=== PATIENT | female | born 1985 | race Two or more races ===

== ENCOUNTER 2025-07-06 10:18 | Emergency (ER) | payer MEDICAID, OTHER ==
[~2025-07-06] VITALS: Ht 154.9 cm; Wt 61.0 kg
--- NOTE | 2025-07-06 10:38 | ED.PDOC ---
History of Present Illness HPI Comments 40-year-old female with no significant past medical history brought in by EMS from her work at [facility] [employer] complaining of dizziness. Patient states she woke up this morning with a throbbing headache in the occipital area and radiating to the top of her head causing a burning sensation in the top of her head. She admits to drinking alcohol last night, but not heavily. Patient states she took ibuprofen this morning without relief. She states that when the pain is severe she becomes lightheaded and feels like she is going to pass out. She denies any vision changes, numbness, weakness, chest pain or shortness of breath. 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 Moist mucous membranes.) Neck: Full Range of Motion, Normal Inspection Respiratory: Lungs Clear, No Accessory Muscle Use, No Respiratory Distress, Nor mal Breath Sounds Cardiovascular: No Edema, No JVD, Regular Rate/Rhythm Breast Exam: Deferred Gastrointestinal: Non Tender, Soft Genitalia: Deferred Pelvic: Deferred Rectal: Deferred Extremities: Normal inspection, Normal range of motion, Non-tender, No pedal edema Neurologic: Alert (Oriented x4), power lineworker II-XII nml as Tested, No Motor Deficits, Normal Affect, Normal Mood, No Sensory Deficits Cerebellar Function: NOT DONE Reflexes: NOT DONE Skin: Dry, Normal Color, Warm Lymphatic: NOT DONE Was a procedure done? Was a procedure done?: No Differential Dx Considerations may include: vertigo, dehydration, electrolyte imbalance, viral syndrome, intracranial bleed, hypotension, among others X-Ray, Labs, Meds, VS Vital Signs Date Time Temp Pulse Resp B/P (MAP) Pulse Ox O2 Delivery O2 Flow Rate FiO2 07/06/25 16:30 97.5 60 20 141/75 (97) 100 97.5 07/06/25 14:27 97.6 71 16 136/75 (95) 100 97.6 07/06/25 14:05 Room Air* 0 21 07/06/25 10:29 98.5 71 16 115/81 97 98.5 Lab Test 07/06/25 16:49 07/06/25 11:49 07/06/25 10:55 Range/Units Urine Color Colorless Yellow Urine Clarity Clear Clear Urine pH 6.0 5.0-9.0 Urine Specific [place] 1.021 1.001-1.035 Urine Protein Negative Negative Urine Ketones Negative Negative Urine Blood Negative Negative /uL Urine Nitrite Negative Negative Urine Bilirubin Negative Negative Urine Urobilinogen Normal Negative mg/dL Urine Leukocyte Esterase Negative Negative /uL Urine RBC <1 0 - 4 /hpf Urine Microscopic WBC 1 0-5 /HPF Urine Squamous Epithelial Cells Few <5 /hpf Urine Bacteria None seen None Seen /hpf Urine Glucose Normal Normal mg/dL Troponin I High Sensitivity < 3 L < 3 L </=34 ng/L White Blood Count 5.5 4.4-10.8 10^3/uL Red Blood Count 4.70 4.0-5.20 10^6/uL Hemoglobin 9.7 L 12.2-16.2 g/dL Hematocrit 31.9 L 36.0-46.0 % Mean Corpuscular Volume 67.8 L 80.0-100.0 fL Mean Corpuscular Hemoglobin 20.6 L 28.0-32.0 pg Mean Corpuscular Hemoglobin Concent 30.3 L 32.0-36.0 g/dL Red Cell Distribution Width 19.4 H 11.8-14.3 % Platelet Count 471 H 140-450 10^3/uL Mean Platelet Volume 6.6 L 6.9-10.8 fL Neutrophils (%) (Auto) 64.1 37.0-80.0 % Lymphocytes (%) (Auto) 26.7 10.0-50.0 % Monocytes (%) (Auto) 7.8 0.0-12.0 % Eosinophils (%) (Auto) 0.6 0.0-7.0 % Basophils (%) (Auto) 0.8 0.0-2.0 % Neutrophils # (Auto) 3.5 1.6-8.6 10 ^3/uL Lymphocytes # (Auto) 1.5 0.4-5.4 10 ^3/uL Monocytes # (Auto) 0.4 0-1.3 10 ^3/uL Eosinophils # (Auto) 0 0-0.8 10 ^3/uL Basophils # (Auto) 0 0-0.2 10 ^3/uL Nucleated Red Blood Cells 0.0 % Platelet Estimate Increased Hypochromasia (manual) Moderate Anisocytosis (manual) Slight Microcytosis Moderate D-Dimer, Quantitative 0.54 H 0.0-0.49 mg/L FEU Sodium Level 141 136-145 mmol/L Potassium Level 4.7 3.5-5.1 mmol/L Chloride Level 107 98-107 mmol/L Carbon Dioxide Level 27 20-31 mmol/L Anion Gap 7 5-15 Blood Urea Nitrogen 9 9-23 mg/dL Creatinine 0.69 0.550-1.02 mg/dL Glomerular Filtration Rate Calc 112 >90 mL/min BUN/Creatinine Ratio 13.0 10.0-20.0 Serum Glucose 110 H 74-106 mg/dL Calcium Level 9.3 8.7-10.4 mg/dL B-Type Natriuretic Peptide 17.20 0-100 pg/mL Current Medications Medications (Trade) Dose Ordered Sig/Luiz Route Start Time Stop Time Status Last Admin Sodium Chloride 1,000 ml @ 1,000 mls/hr Q1H ONCE IV 07/06/25 10:45 07/06/25 11:44 DC 07/06/25 10:45 Acetaminophen/ Hydrocodone Bitart ([place] 5/325MG Tab) 1 tab ONCE ONCE PO 07/06/25 10:45 07/06/25 10:46 DC 07/06/25 14:[address] [address] Ph: [phone] DIAGNOSTIC IMAGING Diagnostic Imaging Report : [id number] Signed PATIENT: JONATHAN TEJEDA ACCT: [id number] UNIT: [id number] : 1985 LOC: ER ROOM / BED: / AGE / SEX: 40 / F ADM STATUS: REG ER SERVICE 1038 ORDERING PHYSICIAN: SAMRA TIWARI MD PROCEDURE(s): HWOCT - HEAD WITHOUT CONTRAST REASON: Headache, near syncope ORDER NUMBER(s): [id number], ACCESSION NUMBER(s): [id number] CT HEAD WITHOUT CONTRAST INDICATION: Headache, near syncope COMPARISON: None TECHNIQUE: CT of the head without intravenous contrast. RADIATION DOSE: CTDIvol: 54 mGy, DLP: 756 mGy*cm FINDINGS: There is no evidence of acute intracranial hemorrhage, extra-axial collection, mass effect, midline shift, herniation or hydrocephalus. The ventricles, sulci and cisterns are age appropriate. The quinones-white differentiation is intact. The visualized paranasal sinuses and mastoid air cells are clear. The surrounding soft tissues and osseous structures are unremarkable. IMPRESSION: 1. No evidence of acute intracranial hemorrhage, mass effect or hydrocephalus. ATED BY: ALEXEI JOSUE MD DICTATED DATE/TIME: 07/06/251126 SIGNED BY: ALEXEI JOSUE MD SIGNED DATE/TIME: 07/06/251126 CC: [place] [address] Ph: [phone] DIAGNOSTIC IMAGING Diagnostic Imaging Report : [id number] Signed PATIENT: JONATHAN TEJEDA ACCT: [id number] UNIT: [id number] : 1985 LOC: ER ROOM / BED: / AGE / SEX: 40 / F ADM STATUS: REG ER SERVICE 1038 ORDERING PHYSICIAN: SAMRA TIWARI MD PROCEDURE(s): CXRP - CHEST PORTABLE REASON: near syncope ORDER NUMBER(s): [id number], ACCESSION NUMBER(s): [id number] CHEST RADIOGRAPH Indication: near syncope Technique: Single frontal view of the chest was obtained COMPARISON: None FINDINGS: Lines and Tubes: None Lungs: Congestion Pleura: No effusion. No pneumothorax. Cardiomediastinal contours: Unremarkable Bones: Unremarkable IMPRESSION: Increased interstital prominence. This may represent pulmonary vascular congestion and/or viral pneumonia. Clinical correlation advised. ATED BY: DAVE YOUNGER MD DICTATED DATE/TIME: 07/06/25 112 SIGNED BY: DAVE YOUNGER MD SIGNED DATE/TIME: 07/06/25 1123 CC: PROCEDURE(s): CTACH - CT ANGIO CHEST CONTRAST REASON: near syncope, elevated ddimer, r/o pe ORDER NUMBER(s): [id number], ACCESSION NUMBER(s): [id number] INDICATION: near syncope, elevated ddimer, r/o pe TECHNIQUE: Multidetector CTA of the chest was performed of the chest with 100 cc of intravenous contrast. PULMONARY ANGIOGRAPHY PROTOCOL was utilized using a bolus-tracking technique centered on the main pulmonary artery. Axial, coronal and sagittal multiplanar and MIP reformats were performed. Radiation Dose Information: CT Dose: CTDI volume is 9.57 mGy. Dose-length product is 2.54 mGy*cm Omnipaque 350: 60 mL The dose indicators for CT are the volume Computed Tomography (CT) Dose Index (CTDIvol) and the Dose Length Product (DLP), and are measured in units of mGy and mGy-cm, respectively. These indicators are not patient dose, but values generated from the CT scanner acquisition factors. The report includes radiation exposure data for exposures received during this examination. Findings: Pulmonary artery: Normal caliber of the pulmonary artery. No large central or large segmental pulmonary embolism. Lower neck: Normal thyroid. Lungs: No focal consolidation, pulmonary mass, or suspicious pulmonary nodule. Heart/Vascular Structures: Normal heart size. Normal caliber and enhancement of the aorta. Lymph Nodes: No adenopathy Pleura: No pleural effusion or significant pneumothorax. Musculoskeletal: No acute osseous abnormality. Upper abdomen: Limited portions of the upper abdomen are unremarkable. IMPRESSION: 1. No pulmonary embolism. No findings of pulmonary artery hypertension. 2. No acute intrathoracic abnormality. X-Ray, Labs, Meds, VS Comment 40-year-old female with no significant past medical history brought in by EMS from her work at [facility] [employer] complaining of dizziness. Vitals unremarkable Exam unremarkable Rhythm strip independently interpreted by me: Sinus rhythm, rate CT unremarkable Chest x-ray IMPRESSION: Increased interstital prominence. This may represent pulmonary vascular congestion and/or viral pneumonia. Clinical correlation advised. CT angio chest IMPRESSION: 1. No pulmonary embolism. No findings of pulmonary artery hypertension. 2. No acute intrathoracic abnormality. CBC remarkable for hemoglobin 9.7, hematocrit 31.9, metabolic panel unremarkable, BNP and 2 serial troponins negative, D-dimer 0.54 UA negative Patient treated with the following in the ED: 1 L 0.9 normal saline IV bolus, [place] 5/325 mg p.o. On re-evaluation, pain has improved. Vitals were stable. Patient appears stable for discharge with close outpatient follow-up with her primary physician. Time of 1ST Reevaluation: 10:52 Reevaluation 1ST: Unchanged Patient Education/Counseling: Diagnosis, Treatment, Need For Follow Up Family Education/Counseling: No Family Present SEPSIS Sepsis Screen Date sepsis recognized/suspect: Jul 06, 2025 Time Sepsis recognized/suspect: 102 Recent Procedure: No On Antibiotic Therapy: No Respiratory Rate >20: No Heart Rate >90: No Temp<36 C (96.8 F) or >38.3 C: No SBP <90 or MAP <65 mmHG: No New Acute Mental Status Change: No Is the patient on CPAP, BIPAP,: No Physician Orders Chest Portable (07/06/25 10:38) Electrocardigram (07/06/25 10:38) Head Without Contrast (07/06/25 10:38) Ct Angio Chest Contrast (07/06/25 12:43) Vital Signs Date Time Temp Pulse Resp B/P (MAP) Pulse Ox O2 Delivery O2 Flow Rate FiO2 07/06/25 16:30 97.5 60 20 141/75 (97) 100 97.5 07/06/25 14:27 97.6 71 16 136/75 (95) 100 97.6 07/06/25 14:05 Room Air* 0 21 07/06/25 10:29 98.5 71 16 115/81 97 98.5 Laboratory Tests Test 07/06/25 10:55 White Blood Count 5.5 10^3/uL (4.4-10.8) Medications Medications Dose Ordered Sig/Luiz Route Start Time Stop Time Status Last Admin Dose Admin Acetaminophen/ Hydrocodone Bitart 1 tab ONCE ONCE PO 07/06/25 10:45 07/06/25 10:46 DC 07/06/25 14:20 Sodium Chloride 1,000 ml @ 1,000 mls/hr Q1H ONCE IV 07/06/25 10:45 07/06/25 11:44 DC 07/06/25 10:45 Departure 1 Departure Time of Disposition: 17:00 Impression: Primary Impression: Headache Additional Impression: Near syncope Disposition: 01 HOME / SELF CARE / HOMELESS Condition: Stable Additional Instructions: Your blood tests, including screening test for heart attack and heart failure, were unremarkable except for mild anemia. There is no treatment needed other than pain medication. Your head CT and chest x-ray were unremarkable. The CT angiogram of your chest was done to rule out blood clots, which can cause dizziness and fainting. No blood clots were seen on your chest CT. I have prescribed pain medication. Follow-up with your primary doctor in 1-2 days. Return to ER for persistent or worsening symptoms. [place] [address] Ph: [phone] DIAGNOSTIC IMAGING Diagnostic Imaging Report : [id number] Signed PATIENT: JONATHAN TEJEDA ACCT: [id number] UNIT: [id number] : 1985 LOC: ER ROOM / BED: / AGE / SEX: 40 / F ADM STATUS: REG ER SERVICE 1038 ORDERING PHYSICIAN: SAMRA TIWARI MD PROCEDURE(s): HWOCT - HEAD WITHOUT CONTRAST REASON: Headache, near syncope ORDER NUMBER(s): [id number], ACCESSION NUMBER(s): [id number] CT HEAD WITHOUT CONTRAST INDICATION: Headache, near syncope COMPARISON: None TECHNIQUE: CT of the head without intravenous contrast. RADIATION DOSE: CTDIvol: 54 mGy, DLP: 756 mGy*cm FINDINGS: There is no evidence of acute intracranial hemorrhage, extra-axial collection, mass effect, midline shift, herniation or hydrocephalus. The ventricles, sulci and cisterns are age appropriate. The quinones-white differentiation is intact. The visualized paranasal sinuses and mastoid air cells are clear. The surrounding soft tissues and osseous structures are unremarkable. IMPRESSION: 1. No evidence of acute intracranial hemorrhage, mass effect or hydrocephalus. [place] [address] Ph: [phone] DIAGNOSTIC IMAGING Diagnostic Imaging Report : [id number] Signed PATIENT: JONATHAN TEJEDA ACCT: [id number] UNIT: [id number] : 1985 LOC: ER ROOM / BED: / AGE / SEX: 40 / F ADM STATUS: REG ER SERVICE 1243 ORDERING PHYSICIAN: SAMRA TIWARI MD PROCEDURE(s): CTACH - CT ANGIO CHEST CONTRAST REASON: near syncope, elevated ddimer, r/o pe ORDER NUMBER(s): [id number], ACCESSION NUMBER(s): [id number] INDICATION: near syncope, elevated ddimer, r/o pe TECHNIQUE: Multidetector CTA of the chest was performed of the chest with 100 cc of intravenous contrast. PULMONARY ANGIOGRAPHY PROTOCOL was utilized using a bolus-tracking technique centered on the main pulmonary artery. Axial, coronal and sagittal multiplanar and MIP reformats were performed. Radiation Dose Information: CT Dose: CTDI volume is 9.57 mGy. Dose-length product is 2.54 mGy*cm Omnipaque 350: 60 mL The dose indicators for CT are the volume Computed Tomography (CT) Dose Index (CTDIvol) and the Dose Length Product (DLP), and are measured in units of mGy and mGy-cm, respectively. These indicators are not patient dose, but values generated from the CT scanner acquisition factors. The report includes radiation exposure data for exposures received during this examination. Findings: Pulmonary artery: Normal caliber of the pulmonary artery. No large central or large segmental pulmonary embolism. Lower neck: Normal thyroid. Lungs: No focal consolidation, pulmonary mass, or suspicious pulmonary nodule. Heart/Vascular Structures: Normal heart size. Normal caliber and enhancement of the aorta. Lymph Nodes: No adenopathy Pleura: No pleural effusion or significant pneumothorax. Musculoskeletal: No acute osseous abnormality. Upper abdomen: Limited portions of the upper abdomen are unremarkable. IMPRESSION: 1. No pulmonary embolism. No findings of pulmonary artery hypertension. 2. No acute intrathoracic abnormality. e-Prescriptions Ibuprofen Micronized (Ibuprofen) 800 Mg Tab 800 MG PO Q8HP PRN, #30 TAB Prov: SAMRA TIWARI MD 07/06/25 Acetaminophen (Tylenol Extra Strength) 500 Mg Tab 1000 MG PO Q6HP PRN, #30 TAB Prov: SAMRA TIWARI MD 07/06/25 Discharged With: Self Critical Care Note Critical Care Time?: No Stability Stability form required: No Heart Score Heart Score: Heart Score Response (Comments) Value History N/A 0 EKG N/A 0 Age N/A 0 Risk Factors N/A 0 Troponin N/A 0 Total 0 I personally scribed for SAMRA TIWARI MD ([email or web address]) on 07/06/25 at 10:56. Electronically submitted by Avery Cantu ([email or web address]). I personally scribed for SAMRA TIWARI MD ([email or web address]) on 07/06/25 at 12:31. Electronically submitted by Avery Cantu ([email or web address]). SAMRA TIWARI MD Jul 06, 2025 10:38
[2025-07-06] MEDS: SODIUM CHLORIDE 0.9% 1,000 ML IV ONE (10:45)
[2025-07-06 11:13] LABS: Hemoglobin 9.7 g/dL (12.2-16.2)
[2025-07-06 11:15] LABS: Hematocrit 31.9 % (36.0-46.0); Mean Corpuscular Hemoglobin 20.6 pg (28.0-32.0); Mean Corpuscular Volume 67.8 fL (80.0-100.0); Nucleated Red Blood Cells % 0.0 %
[2025-07-06 11:19] LABS: Potassium 4.7 mmol/L (3.5-5.1); Sodium 141 mmol/L (136-145)
[2025-07-06 11:20] LABS: Anion Gap 7 (5-15); Carbon Dioxide 27 mmol/L (20-31)
[2025-07-06 11:21] LABS: Calcium 9.3 mg/dL (8.7-10.4)
[2025-07-06 11:25] LABS: BUN/Creatinine Ratio 13.0 (10.0-20.0); Blood Urea Nitrogen 9 mg/dL (9-23)
--- NOTE | 2025-07-06 11:25 | DVH ---
CHEST RADIOGRAPH Indication: near syncope Technique: Single frontal view of the chest was obtained COMPARISON: None FINDINGS: Lines and Tubes: None Lungs: Congestion Pleura: No effusion. No pneumothorax. Cardiomediastinal contours: Unremarkable Bones: Unremarkable IMPRESSION: Increased interstital prominence. This may represent pulmonary vascular congestion and/or viral pneum onia. Clinical correlation advised.
[2025-07-06 11:28] LABS: Chloride 107 mmol/L (98-107)
--- NOTE | 2025-07-06 11:29 | DVH ---
CT HEAD WITHOUT CONTRAST INDICATION: Headache, near syncope COMPARISON: None TECHNIQUE: CT of the head without intravenous contrast. RADIATION DOSE: CTDIvol: 54 mGy, DLP: 756 mGy*cm FINDINGS: There is no evidence of acute intracranial hemorrhage, extra-axial collection, mass effect, midline s hift, herniation or hydrocephalus. The ventricles, sulci and cisterns are age appropriate. The quinones -white differentiation is intact. The visualized paranasal sinuses and mastoid air cells are clear. The surrounding soft tissues and osseous structures are unremarkable. IMPRESSION: 1. No evidence of acute intracranial hemorrhage, mass effect or hydrocephalus.
[2025-07-06 11:34] LABS: Anisocytosis Slight
[2025-07-06 11:53] LABS: Glucose 110 mg/dL (74-106)
[2025-07-06] MEDS: IOHEXOL 350 MG/ML 100ML IJ ONE (12:52)
[2025-07-06] MEDS: HYDROcodone-ACET 5/325MG TAB PO ONE (14:20)
--- NOTE | 2025-07-06 14:49 | DVH ---
INDICATION: near syncope, elevated ddimer, r/o pe TECHNIQUE: Multidetector CTA of the chest was performed of the chest with 100 cc of intravenous contr ast. PULMONARY ANGIOGRAPHY PROTOCOL was utilized using a bolus-tracking technique centered on the morteza n pulmonary artery. Axial, coronal and sagittal multiplanar and MIP reformats were performed. Radiation Dose Information: CT Dose: CTDI volume is 9.57 mGy. Dose-length product is 2.54 mGy*cm Omnipaque 350: 60 mL The dose indicators for CT are the volume Computed Tomography (CT) Dose Index (CTDIvol) and the Dose Length Product (DLP), and are measured in units of mGy and mGy-cm, respectively. These indicators are not patient dose, but values generated from the CT scanner acquisition factors. The report includes radiation exposure data for exposures received during this examination. Findings: Pulmonary artery: Normal caliber of the pulmonary artery. No large central or large segmental pulmo nary embolism. Lower neck: Normal thyroid. Lungs: No focal consolidation, pulmonary mass, or suspicious pulmonary nodule. Heart/Vascular Structures: Normal heart size. Normal caliber and enhancement of the aorta. Lymph Nodes: No adenopathy Pleura: No pleural effusion or significant pneumothorax. Musculoskeletal: No acute osseous abnormality. Upper abdomen: Limited portions of the upper abdomen are unremarkable. IMPRESSION: 1. No pulmonary embolism. No findings of pulmonary artery hypertension. 2. No acute intrathoracic abnormality.
[2025-07-06 17:06] LABS: Urine Protein, UAD Negative (Negative)
[2025-07-06] MEDS ORDERED: ACET-1304 PO (17:30)
[2025-07-06] MEDS ORDERED: IBUP-1455 PO (17:30)
[2025-07-06 18:38] VITALS: BP 152/77; PULSE 64; RESP 18; TEMP 98.2; O2SAT 98
== END 2025-07-06 18:40 | disposition home or self-care (01) ==
LOC: EDBD 10:18 → ER 10:18
DX: R42 Dizziness and giddiness (principal); R20.8 Other disturbances of skin sensation; R51.9 Headache, unspecified; Z79.899 Other long term (current) drug therapy
CPT/HCPCS: 36415; 70450; 71045; 71275; 80048; 81001; 83880; 84484; 85025; 85379; 96360; 99285; J7030; Q9967

== ENCOUNTER 2025-07-07 11:02 | Emergency (ER) | payer MEDICAID ==
[~2025-07-07] VITALS: Ht 154.9 cm; Wt 61.0 kg
[~2025-07-07 11:02] MED LIST: ACET-1304 PO; IBUP-1455 PO
--- NOTE | 2025-07-07 12:03 | ED.PDOC ---
History of Present Illness HPI Comments 40-year-old female presents to the ER with prior surgical history of and a chief complaint of a medical clearance. Patient is requesting an work note for visit here yesterday of head pain and dizziness. Denies chills, fever, N/V/D, SOB, CP. No other associated symptoms, modifiers, recent injuries or sick contacts present at this time. 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 History Family History Family History: Reviewed,noncontributory to illness, Unknown Social History Smoker: Non-Smoker Alcohol: Denies ETOH Use Drugs: Denies Drug Use Lives In: Home Constitutional: denies: chills, diaphoresis, fatigue, fever, malaise, sweats, weakness, others EENTM: denies: blurred vision, double vision, ear bleeding, ear discharge, ear drainage, ear pain, ear ringing, eye pain, eye redness, hearing loss, mouth pain, mouth swelling, nasal discharge, nose bleeding, nose congestion, nose pain, photophobia, tearing, throat pain, throat swelling, voice changes, others Respiratory: denies: cough, hemoptysis, orthopnea, SOB at rest, shortness of breath, SOB with excertion, stridor, wheezing, others Cardiovascular: denies: chest pain, dizzy spells, diaphoresis, Dyspnea on exertion, edema, irregular heart beat, left arm pain, lightheadedness, palpitations, PND, syncope, others Gastrointestinal: denies: abdomen distended, abdominal pain, blood streaked bowels, constipated, diarrhea, dysphagia, difficulty swallowing, hematemesis, melena, nausea, poor appetite, poor fluid intake, rectal bleeding, rectal pain, vomiting, others Genitourinary: denies: abnormal vagina bleeding, burning, dyspareunia, dysuria, flank pain, frequency, hematuria, incontinence, pain, , vagina discharge, urgency, others Neurological: denies: dizziness, fainting, headache, left sided numbness, left sided weakness, numbness, paresthesia, pre-existing deficit, right sided n umbness, right sided weakness, seizure, speech problems, tingling, tremors, weakness, others Musculoskeletal: denies: back pain, gout, joint pain, joint swelling, muscle pain, muscle stiffness, neck pain, others Integumetry: denies: bruises, change in color, change in hair/nails, dryness, laceration, lesions, lumps, rash, wounds, others Allergic/Immunocompromised: denies: Difficulty Healing, Frequent Infections, Hives, Itching, others Hematologic/Lymphatic: denies: anemia, blood clots, easy bleeding, easy bruising, swollen glands, others Endocrine: denies: excessive hunger, excessive sweating, excessive thirst, excessive urination, flushing, intolerance to cold, intolerance to heat, unexplained weight gain, unexplained weight loss, others Psychiatric: denies: anxiety, bipolar disorder, depression, hopeless, panic disorder, schizophrenia, sleepless, suicidal, others All Other Systems: Reviewed and Negative Physical Exam General Appearance: No Apparent Distress, Normal HEENT: Normal ENT Inspection, Pharynx Normal, TMs Normal Neck: Full Range of Motion, Non-Tender, Normal, Normal Inspection Respiratory: Chest Non-Tender, Lungs Clear, No Accessory Muscle Use, No Respiratory Distress, Normal Breath Sounds Cardiovascular: No Edema, No JVD, No Murmur, No Gallop, Normal Peripheral Pulses, Regular Rate/Rhythm Breast Exam: Deferred Gastrointestinal: No Organomegaly, Non Tender, No Pulsatile Mass, Normal Bowel Sounds, Soft Genitalia: Deferred Pelvic: Deferred Rectal: Deferred Extremities: No calf tenderness, Normal capillary refill, Normal inspection, Normal range of motion, Non-tender, No pedal edema Musculoskeletal : Apperance: Normal Neurologic: Alert, behavioral health director II-XII nml as Tested, No Motor Deficits, Normal Affect, Normal Mood, No Sensory Deficits Cerebellar Function: Normal Reflexes: Normal Skin: Dry, Normal Color, Warm Lymphatic: No Adenopathy Was a procedure done? Was a procedure done?: No X-Ray, Labs, Meds, VS Vital Signs Date Time Temp Pulse Resp B/P (MAP) Pulse Ox O2 Delivery O2 Flow Rate FiO2 07/07/25 11:04 98.0 64 16 120/79 96 98.0 Time of 1ST Reevaluation: 12:30 Reevaluation 1ST: Unchanged Patient Education/Counseling: Diagnosis, Treatment, Prognosis Family Education/Counseling: No Family Present SEPSIS Sepsis Screen Date sepsis recognized/suspect: Jul 07, 2025 Time Sepsis recognized/suspect: 1104 Recent Procedure: No On Antibiotic Therapy: No Respiratory Rate >20: No Heart Rate >90: No Temp<36 C (96.8 F) or >38.3 C: No SBP <90 or MAP <65 mmHG: No New Acute Mental Status Change: No Is the patient on CPAP, BIPAP,: No Vital Signs Date Time Temp Pulse Resp B/P (MAP) Pulse Ox O2 Delivery O2 Flow Rate FiO2 07/07/25 11:04 98.0 64 16 120/79 96 98.0 Critical Care Note Critical Care Time?: No Stability Stability form required: No I personally scribed for ER ([email or web address]) on 07/07/25 at 12:03. Electronically submitted by Kimo Garcia ([email or web address]). I personally scribed for ER ([email or web address]) on 07/07/25 at 15:14. Electronically submitted by Kimo [email or web address]). ER Jul 07, 2025 12:03
--- NOTE | 2025-07-07 15:41 | ED.PDOC ---
History of Present Illness HPI Comments 40-year-old female presents to the ER with prior surgical history of and a chief complaint of a medical clearance. Patient is requesting an work note for visit here yesterday of head pain and dizziness. She has been drinking a lot of fluids, checking her blood pressure. And everything has been back to normal. She believes that she was slightly dehydrated. She went to work today but they sent her home because she needed a note so she is here for that purpose only. Chief Complaint: Medical Clearance Time Seen by MD: 15:40 Reviewed Notes: Nurses Notes, Medications, Allergies Allergies: Coded Allergies: NO KNOWN ALLERGIES (Unverified , 09/29/16) Home Meds Active Scripts Ibuprofen Micronized (Ibuprofen) 800 Mg Tab, 800 MG PO Q8HP PRN, #30 TAB Prov:SAMRA TIWARI MD 07/06/25 Acetaminophen (Tylenol Extra Strength) 500 Mg Tab, 1000 MG PO Q6HP PRN, #30 TAB Prov:SAMRA TIWARI MD 07/06/25 Information Source: Patient Mode of Arrival: Ambulatory Severity: Moderate Timing: Hours Duration: Since onset, Hours Prehospital treatment: None Past Medical History PAST MEDICAL HISTORY: Denies Surgical History: 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: No 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 Family History Family History: Reviewed,noncontributory to illness, Unknown Social History Smoker: Non-Smoker Alcohol: Denies ETOH Use Drugs: Denies Drug Use Lives In: Home Constitutional: reports: others (Medical clearance); denies: chills, diaphoresis, fatigue, fever, malaise, sweats, weakness EENTM: denies: blurred vision, double vision, ear bleeding, ear discharge, ear drainage, ear pain, ear ringing, eye pain, eye redness, hearing loss, mouth pain, mouth swelling, nasal discharge, nose bleeding, nose congestion, nose pain, photophobia, tearing, throat pain, throat swelling, voice changes, others Respiratory: denies: cough, hemoptysis, orthopnea, SOB at rest, shortness of breath, SOB with excertion, stridor, wheezing, others Cardiovascular: denies: chest pain, dizzy spells, diaphoresis, Dyspnea on exertion, edema, irregular heart beat, left arm pain, lightheadedness, palpitations, PND, syncope, others Gastrointestinal: denies: abdomen distended, abdominal pain, blood streaked bowels, constipated, diarrhea, dysphagia, difficulty swallowing, hematemesis, melena, nausea, poor appetite, poor fluid intake, rectal bleeding, rectal pain, vomiting, others Genitourinary: denies: abnormal vagina bleeding, burning, dyspareunia, dysuria, flank pain, frequency, hematuria, incontinence, pain, , vagina discharge, urgency, others Neurological: denies: dizziness, fainting, headache, left sided numbness, left sided weakness, numbness, paresthesia, pre-existing deficit, right sided numbness, right sided weakness, seizure, speech problems, tingling, tremors, weakness, others Musculoskeletal: denies: back pain, gout, joint pain, joint swelling, muscle pain, muscle stiffness, neck pain, others Integumetry: denies: bruises, change in color, change in hair/nails, dryness, laceration, lesions, lumps, rash, wounds, others Allergic/Immunocompromised: denies: Difficulty Healing, Frequent Infections, Hives, Itching, others Hematologic/Lymphatic: denies: anemia, blood clots, easy bleeding, easy bruising, swollen glands, others Endocrine: denies: excessive hunger, excessive sweating, excessive thirst, excessive urination, flushing, intolerance to cold, intolerance to heat, unexplained weight gain, unexplained weight loss, others Psychiatric: denies: anxiety, bipolar disorder, depression, hopeless, panic disorder, schizophrenia, sleepless, suicidal, others All Other Systems: Reviewed and Negative Physical Exam General Appearance: No Apparent Distress, Normal HEENT: Normal ENT Inspection, Pharynx Normal, TMs Normal Neck: Full Range of Motion, Non-Tender, Normal, Normal Inspection Respiratory: Chest Non-Tender, Lungs Clear, No Accessory Muscle Use, No Respir atory Distress, Normal Breath Sounds Cardiovascular: No Edema, No JVD, No Murmur, No Gallop, Normal Peripheral Pulses, Regular Rate/Rhythm Breast Exam: Deferred Gastrointestinal: No Organomegaly, Non Tender, No Pulsatile Mass, Normal Bowel Sounds, Soft Genitalia: Deferred Pelvic: Deferred Rectal: Deferred Extremities: No calf tenderness, Normal capillary refill, Normal inspection, Normal range of motion, Non-tender, No pedal edema Musculoskeletal : Apperance: Normal Neurologic: Alert, biometrics instructor II-XII nml as Tested, No Motor Deficits, Normal Affect, Normal Mood, No Sensory Deficits Cerebellar Function: Normal Reflexes: Normal Skin: Dry, Normal Color, Warm Lymphatic: No Adenopathy Was a procedure done? Was a procedure done?: No Differential Dx Considerations may include: Hydration, high blood pressure X-Ray, Labs, Meds, VS Vital Signs Date Time Temp Pulse Resp B/P (MAP) Pulse Ox O2 Delivery O2 Flow Rate FiO2 07/07/25 11:04 98.0 64 16 120/79 96 98.0 X-Ray, Labs, Meds, VS Comment Patient seen and examined by me. Patient is here primarily for a work note only she was worked up in the ER yesterday for dizziness and dehydration at this time she feels great, she has no dizziness her blood pressure has been good she has been drinking fluids. She is requesting a note to go back to work as of tomorrow.. Time of 1ST Reevaluation: 16:10 Reevaluation 1ST: Unchanged Patient Education/Counseling: Diagnosis, Treatment, Prognosis Family Education/Counseling: No Family Present SEPSIS Sepsis Screen Date sepsis recognized/suspect: Jul 07, 2025 Time Sepsis recognized/suspect: 1104 Recent Procedure: No On Antibiotic Therapy: No Respiratory Rate >20: No Heart Rate >90: No Temp<36 C (96.8 F) or >38.3 C: No SBP <90 or MAP <65 mmHG: No New Acute Mental Status Change: No Is the patient on CPAP, BIPAP,: No Vital Signs Date Time Temp Pulse Resp B/P (MAP) Pulse Ox O2 Delivery O2 Flow Rate FiO2 07/07/25 11:04 98.0 64 16 120/79 96 98.0 Departure 1 Departure Time of Disposition: 15:43 Impression: Primary Impression: Return to work exam Disposition: 01 HOME / SELF CARE / HOMELESS Condition: Good Additional Instructions: Continue to stay hydrated monitor your blood pressure as directed Discharged With: Self Critical Care Note Critical Care Time?: No Stability Stability form required: No I personally scribed for ER ([email or web address]) on 07/07/25 at 15:41. Electronically submitted by Kimo Garcia ([email or web address]). ER Jul 07, 2025 15:41 ISHAAN DAVENPORT APPLICATION SOFTWARE ENGINEER Jul 07, 2025 15:45
[2025-07-07 15:45] VITALS: BP 122/74; PULSE 64; RESP 16; TEMP 98.2; O2SAT 96
== END 2025-07-07 15:46 | disposition home or self-care (01) ==
LOC: ER 11:02
DX: R51.9 Headache, unspecified (principal); R42 Dizziness and giddiness; E86.0 Dehydration